=== PATIENT | female | born 2000 | race Two or more races ===

== ENCOUNTER 2023-10-28 16:15 | Inpatient (IN) | payer MEDICAID, OTHER ==
[~2023-10-28] VITALS: Ht 144.8 cm; Wt 72.6 kg
[2023-10-28 17:20] LABS: Basophils # (auto) 0 10 ^3/uL (0-0.2); Eosinophils # (auto) 0 10 ^3/uL (0-0.8); Eosinophils % (auto) 0.1 % (0.0-7.0); Lymphocytes # (auto) 1.4 10 ^3/uL (0.4-5.4); White Blood Cell 7.6 10^3/uL (4.4-10.8)
[2023-10-28 17:22] LABS: Basophils % (auto) 0.5 % (0.0-2.0); Hematocrit 26.8 % (36.0-46.0); Lymphocytes % (auto) 18.7 % (10.0-50.0); Mean Corpuscular Hemoglobin 18.7 pg (28.0-32.0); Mean Corpuscular Hgb Conc. 29.7 g/dL (32.0-36.0); Monocytes # (auto) 0.6 10 ^3/uL (0-1.3); Monocytes % (auto) 7.5 % (0.0-12.0); Neutrophils # (auto) 5.5 10 ^3/uL (1.6-8.6); Neutrophils % (auto) 73.2 % (37.0-80.0); Nucleated Red Blood Cells % 0.1 %; Red Blood Cells 4.25 10^6/uL (4.0-5.20)
[2023-10-28 17:24] LABS: Urine Bacteria FEW /hpf (None Seen); Urine Blood Negative /uL (Negative); Urine Clarity Clear (Clear); Urine Color Yellow (Yellow); Urine Mucus FEW (None Seen); Urine Protein, UAD TRACE (Negative); Urine Specific Gravity 1.023 (1.001-1.035); Urine Urobilinogen Normal (Negative); Urine WBC 2 /hpf (0 - 5); Urine pH 6.5 (5.0-8.0)
[2023-10-28 17:28] LABS: INR 0.99 (0.9-1.15); Partial Thromboplastin Time 26.6 SEC (24.5-34.5); Prothrombin Time 10.4 sec (9.3-11.8)
[2023-10-28 17:34] LABS: Alkaline Phosphatase 201 U/L (46-116); Amphetamine Screen, Urine Neg (NEGATIVE); Anion Gap 6 (5-15); Aspartate Aminotransferase 25 U/L (13-40); BUN/Creatinine Ratio 15.5 (10.0-20.0); Barbiturate Scree,Urine Neg (NEGATIVE); Benzodiazephine Screen, Urine Neg (NEGATIVE); Bilirubin, Total 0.8 mg/dL (0.2-1.0); Blood Urea Nitrogen 9 mg/dL (9-23); Calcium 8.9 mg/dL (8.5-10.1); Cannabinoid Screen, Urine Neg (NEGATIVE); Carbon Dioxide 23 mmol/L (20-30); Chloride 107 mmol/L (98-107); Cocaine Screen, Urine Neg (NEGATIVE); Glucose 69 mg/dL (74-106); Opiate Scree,Urine Neg (NEGATIVE); Phencyclidine Screen, Urine Neg (NEGATIVE); Potassium 3.9 mmol/L (3.5-5.1); Sodium 136 mmol/L (136-145); Total Protein 6.8 g/dL (5.7-8.2)
[2023-10-28 17:45] LABS: Alanine Aminotransferase < 9 U/L (7-40)
[2023-10-28] MEDS: ceFAZolin 1GM/50ML 50 ML IV ONE ×2 (19:00→20:03)
[2023-10-28] MEDS ORDERED: MORPHINE SULF PF 5 MG/10 ML VIAL ONE (19:16)
[2023-10-28] MEDS: LACTATED RINGER'S 1,000 ML IV ONE (19:22)
[2023-10-28] MEDS ORDERED: MORPHINE SULFATE 4 MG/ML SYR/VIAL IV PRN (20:15)
[2023-10-28] MEDS: GUM (CHEWING) 1 GUM CHEW CHEW ONE (20:15)
[2023-10-28] MEDS ORDERED: ONDANSETRON HCL 4 MG/2 ML VIAL IV PRN ×2 (20:15→21:30)
[2023-10-28] MEDS ORDERED: ePHEDrine SULFATE 50 MG/ML AMP ONE ×2 (20:22→20:35)
[2023-10-28] MEDS ORDERED: ONDANSETRON HCL 4 MG/2 ML VIAL ONE (20:23)
[2023-10-28] MEDS ORDERED: OXYTOCIN 10UNIT/ML 1ML VIAL ONE ×3 (20:30→21:00)
[2023-10-28] MEDS: LACT. RINGERS/OXYTOCIN 20UNITS 1,000 ML IV ONE (20:32)
[2023-10-28 21:08] VITALS: O2SAT 99
[2023-10-28] MEDS ORDERED: MEPERIDINE HCL (25 MG/ML) 1ML VIAL IV PRN (21:30)
[2023-10-28] MEDS ORDERED: KETOROLAC TROMETH 30 MG/ML 1ML VIAL IV PRN (21:30)
[2023-10-28] MEDS ORDERED: HYDROmorphone HCL 2 MG/ML VL/or syr IV PRN ×2 (21:30)
[2023-10-28] MEDS: NALBUPHINE HCL 10 MG/1ml INJECTION SUBCUT ONE (21:30)
[2023-10-28] MEDS ORDERED: NALOXONE HCL 0.4 MG/ML VIAL IV PRN (21:30)
[2023-10-28] MEDS ORDERED: DexAMETHasone SOD PHOS 10MG/1ML VIAL INJ IV PRN (21:30)
[2023-10-28] MEDS: ONDANSETRON HCL 4 MG/2 ML VIAL IV PRN (21:34)
[2023-10-28 21:50] VITALS: PULSE 74; RESP 16
[2023-10-28 22:30] VITALS: BP 124/51; PULSE 74; RESP 16; TEMP 98; O2SAT 98
[2023-10-28] MEDS ORDERED: FERR1TAB36 PO (22:48)
[2023-10-28 23:00] VITALS: BP_SYST 110; BP_SYST 115; BP_DIAS 56; BP_DIAS 63; PULSE 103; PULSE 69; RESP 16; O2SAT 97; O2SAT 98
[2023-10-29] VITALS (22 sets, daily range): BP systolic 95–123; BP diastolic 43–67; PULSE 73–102; RESP 16–18; TEMP 97.5–98.6; O2SAT 96–99
[2023-10-29] MEDS: diphenhdrAMINE HCL 50 MG/1 ML VL IV PRN (00:57)
[2023-10-29] MEDS: ACETAMINOPHEN IV 1000 MG/100ML (10MG/ML) IV PRN (01:44)
[2023-10-29] MEDS: LACTATED RINGER'S 1,000 ML IV SCH (01:46)
[2023-10-29] MEDS: ceFAZolin 1GM/50ML 50 ML IV SCH (04:13)
[2023-10-29 06:43] LABS: Basophils # (auto) 0 10 ^3/uL (0-0.2); Basophils % (auto) 0.2 % (0.0-2.0); Eosinophils # (auto) 0 10 ^3/uL (0-0.8); Hemoglobin 7.4 g/dL (12.2-16.2); Monocytes # (auto) 0.7 10 ^3/uL (0-1.3)
[2023-10-29 06:49] LABS: Hematocrit 24.4 % (36.0-46.0); Lymphocytes # (auto) 1.3 10 ^3/uL (0.4-5.4); Lymphocytes % (auto) 12.5 % (10.0-50.0); Mean Corpuscular Hgb Conc. 30.4 g/dL (32.0-36.0); Mean Corpuscular Volume 62.5 fL (80.0-100.0); Monocytes % (auto) 6.5 % (0.0-12.0); Neutrophils # (auto) 8.2 10 ^3/uL (1.6-8.6); Neutrophils % (auto) 80.8 % (37.0-80.0); Red Cell Distribution Width 18.5 % (11.8-14.3); White Blood Cell 10.2 10^3/uL (4.4-10.8)
[2023-10-29] MEDS: FERROUS SULFATE 325mg EC TAB PO SCH (08:15)
[2023-10-29 17:38] LABS: Basophils # (auto) 0 10 ^3/uL (0-0.2); Eosinophils # (auto) 0 10 ^3/uL (0-0.8); Hemoglobin 7.6 g/dL (12.2-16.2); Mean Corpuscular Hemoglobin 18.6 pg (28.0-32.0); Neutrophils # (auto) 6.6 10 ^3/uL (1.6-8.6); White Blood Cell 8.8 10^3/uL (4.4-10.8)
[2023-10-29 17:40] LABS: Basophils % (auto) 0.4 % (0.0-2.0); Eosinophils % (auto) 0.1 % (0.0-7.0); Hematocrit 26.4 % (36.0-46.0); Lymphocytes # (auto) 1.2 10 ^3/uL (0.4-5.4); Lymphocytes % (auto) 13.7 % (10.0-50.0); Mean Corpuscular Hgb Conc. 28.9 g/dL (32.0-36.0); Mean Corpuscular Volume 64.4 fL (80.0-100.0); Monocytes # (auto) 0.9 10 ^3/uL (0-1.3); Monocytes % (auto) 10.7 % (0.0-12.0); Neutrophils % (auto) 75.1 % (37.0-80.0); Nucleated Red Blood Cells % 0.2 %; Red Blood Cells 4.09 10^6/uL (4.0-5.20); Red Cell Distribution Width 18.5 % (11.8-14.3)
[2023-10-29 18:00] LABS: Anisocytosis Moderate; Hypochromia Slight; Ovalocytes FEW; Stomatocytes Few
[2023-10-29 18:01] LABS: Large Platelets FEW; Platelet Estimate Adequa
[2023-10-29] MEDS: KETOROLAC TROMETH 30 MG/ML 1ML VIAL IV PRN (20:08)
[2023-10-29] MEDS ORDERED: BISACODYL 10 MG RECT SUPP PR PRN (22:30)
[2023-10-29] MEDS ORDERED: HYDROcodone-ACET 5/325MG TAB PO PRN (22:30)
[2023-10-29] MEDS: HYDROcodone-ACET 5/325MG TAB PO PRN (23:56)
[2023-10-30 03:00] VITALS: BP 112/43; PULSE 98; RESP 16; TEMP 98.1; O2SAT 98
[2023-10-30] MEDS: IBUPROFEN 800 MG TAB PO PRN (06:50)
[2023-10-30] MEDS: SIMETHICONE 80 MG CHEWABLE TABLET PO SCH (06:50)
[2023-10-30 07:44] LABS: Basophils # (auto) 0 10 ^3/uL (0-0.2); Eosinophils # (auto) 0 10 ^3/uL (0-0.8); Hemoglobin 8.1 g/dL (12.2-16.2); Lymphocytes # (auto) 1.9 10 ^3/uL (0.4-5.4); Mean Corpuscular Hemoglobin 18.7 pg (28.0-32.0); Mean Corpuscular Hgb Conc. 29.2 g/dL (32.0-36.0)
[2023-10-30 07:46] LABS: Basophils % (auto) 0.2 % (0.0-2.0); Eosinophils % (auto) 0.1 % (0.0-7.0); Hematocrit 27.8 % (36.0-46.0); Lymphocytes % (auto) 20.3 % (10.0-50.0); Mean Corpuscular Volume 63.8 fL (80.0-100.0); Monocytes % (auto) 11.2 % (0.0-12.0); Neutrophils # (auto) 6.2 10 ^3/uL (1.6-8.6); Neutrophils % (auto) 68.2 % (37.0-80.0); Nucleated Red Blood Cells % 0.2 %; Red Blood Cells 4.36 10^6/uL (4.0-5.20); White Blood Cell 9.1 10^3/uL (4.4-10.8)
[2023-10-30 08:02] VITALS: BP 108/43; PULSE 90; RESP 18; O2SAT 98
[2023-10-30] MEDS: DOCUSATE SOD 100 MG CAP PO SCH (09:09)
[2023-10-30] MEDS: DOCUSATE CALCIUM 240 MG CAP PO SCH (09:09)
[2023-10-30] MEDS ORDERED: CALC1CHW PO (10:24)
[2023-10-30] MEDS ORDERED: DOCU240C26 PO (10:25)
[2023-10-30] MEDS ORDERED: IBUP-1456 PO (10:25)
[2023-10-30 12:09] VITALS: BP 121/57; PULSE 89; RESP 16; TEMP 97.6; O2SAT 100
[2023-10-31] MEDS ORDERED: HYDR1TAB97 PO (07:36)
[2023-10-31 23:06] LABS: Chlamydia Trachomatis, NAA Negative (Negative); Neisseria gonorrhoeae, NAA Negative (Negative)
[2023-11-01 01:06] LABS: Rubella Antibodies, IgG 2.19 index (Immune >0.99)
[2023-11-01 06:06] LABS: RPR Non Reactive (Non Reactive)
[2023-11-01 18:06] LABS: Treponema pallidum Ab (FTA-Ab) Non Reactive (Non Reactive)
== END 2023-10-30 14:29 | disposition home or self-care (01) | DRG 540 ==
LOC: LDRP 16:15 → OBSVTOIN 18:47 → LDRP 22:59
PROVIDERS: ADMIT Obstetrics & Gynecology; ATTEND Obstetrics & Gynecology
PROC: 10D00Z1 Extraction of Products of Conception, Low, Open Approach (ICD-10-PCS; principal; 2023-10-28 20:11)
DX: O34.211 Maternal care for low transverse scar from previous cesarean delivery (principal); D64.9 Anemia, unspecified; M25.511 Pain in right shoulder; O99.02 Anemia complicating childbirth; O90.89 Other complications of the puerperium, not elsewhere classified; Z37.0 Single live birth; Z3A.38 38 weeks gestation of pregnancy
CPT/HCPCS: 36415; 59025; 76805; 76818; 80053; 80307; 81001; 81002; 83036; 85025; 85610; 85730; 86592; 86703; 86762; 86803; 86850; 86900; 86901; 86920; 87340; 94760; 94762; 96360; 96361; 96365; 96366; 96375; G0378; J0131; J1885; J2405